=== PATIENT | female | born 1965 | race Caucasian/White ===

== ENCOUNTER 2018-05-21 17:39 | Inpatient (IN) | payer MEDICAID ==
[~2018-05-21] VITALS: Ht 175.3 cm; Wt 75.0 kg
[2018-05-21] MEDS ORDERED: normal saline 1000ML IV soln IVB ONE (17:50)
[2018-05-21] MEDS ORDERED: methylPREDNISolone sod succ 125mg/2ml vial IV ONE (17:50)
[2018-05-21] MEDS ORDERED: albuterol 2.5 MG/3 ML nebule CONTNEB PRN (17:50)
[2018-05-21 18:18] LABS: BASOPHILS # (AUTO) 0.1 X10'3 (0-0.2); BASOPHILS % (AUTO) 0.4 % (0-1); EOSINOPHILS # (AUTO) 0.6 X10'3 (0-0.9); EOSINOPHILS % (AUTO) 3.7 % (0-6); HEMATOCRIT 43.2 % (35.0-45.0); HEMOGLOBIN 14.5 g/dl (12.0-16.0); LYMPHOCYTES # (AUTO) 1.8 X10'3 (1.1-4.8); LYMPHOCYTES % (AUTO) 11.4 % (21-51); MEAN CORPUSCULAR HEMOGLOBIN 28.3 PG (27.0-31.0); MEAN CORPUSCULAR HGB CONC 33.5 % (33.0-36.5); MEAN CORPUSCULAR VOLUME 84.6 FL (78-98); MEAN PLATELET VOLUME 7.3 FL (7.4-10.4); MONOCYTES # (AUTO) 0.7 X10'3 (0-0.9); MONOCYTES % (AUTO) 4.6 % (2-12); NEUTROPHILS # (AUTO) 12.4 X10'3 (1.8-7.7); NEUTROPHILS % (AUTO) 79.9 % (42-75); PLATELET COUNT 344 X10'3 (140-440); RED BLOOD COUNT 5.11 X10'6 (4.20-5.60); RED CELL DISTRIBUTION WIDTH 13.3 % (11.5-14.5); WHITE BLOOD COUNT 15.6 X10'3 (4.5-11.0)
[2018-05-21 18:41] LABS: ALANINE AMINOTRANSFERASE 14 U/L (12-78); ALBUMIN 3.4 G/DL (3.4-5.0); ALBUMIN/GLOBULIN RATIO 0.7 (1.1-1.5); ALKALINE PHOSPHATASE 100 IU/L (46-116); ANION GAP 11 (8-16); ASPARTATE AMINO TRANSFERASE 15 U/L (10-37); BILIRUBIN,TOTAL 0.8 MG/DL (0.1-1.0); BLOOD UREA NITROGEN 16 MG/DL (7-18); BUN/CREATININE RATIO 28.6 (6.6-38.0); CALCIUM 9.6 MG/DL (8.5-10.1); CHLORIDE 100 MMOL/L (99-107); CREATININE 0.56 MG/DL (0.40-0.90); GLUCOSE 101 MG/DL (70-104); POTASSIUM 4.1 MMOL/L (3.5-5.1); SODIUM 139 MMOL/L (135-145); TOTAL CARBON DIOXIDE 28.2 MMOL/L (24-32); eGFR > 90 ML/MIN
[2018-05-21 18:41] LABS: ABG BASE EXCESS 2.7 mmol/L (-2.0-3.0); ABG HCO3 26.4 mmol/L (22.0-26.0); ABG OXYGEN SATURATION 88.3 % (95-98); ABG PCO2 (T) 38.4 mmHg (32.0-45.0); ABG PH (T) 7.457 (7.350-7.450); FCOHb 0.7 % (0.5-1.5); FLOW 5 L/min; FMetHb 0.3 % (0.3-1.12); FO2Hb 87.4 % (94-100); PATIENT TEMPERATURE 37.4; RESPIRATORY RATE (OBSERVED) 26 b/min; TOTAL HEMOGLOBIN 15.3 G/dl (12.0-16.0)
[2018-05-21 18:43] LABS: PARTIAL THROMBOPLASTIN TIME 31 SECONDS (22-32); PROTHROMBIN TIME 10.5 SECONDS (9.0-12.0)
[2018-05-21 18:44] LABS: D-DIMER 0.63 MG/L FEU (0-0.50)
[2018-05-21] MEDS ORDERED: NO HOME MEDS (19:24)
[2018-05-21] MEDS ORDERED: iohexol 350MG/ML 100ml bottle IV ONE (19:31)
[2018-05-21] MEDS: normal saline 1000ml 1,000 ML IV SCH (19:51)
[2018-05-21] MEDS ORDERED: ondansetron/PF 4mg/2ml inj IV PRN (19:55)
[2018-05-21] MEDS ORDERED: magnesium hydroxide 30ml (MOM) UD suspension PO PRN (19:55)
[2018-05-21] MEDS ORDERED: diphenhydrAMINE 50 mg/ml inj IV PRN (19:55)
[2018-05-21] MEDS ORDERED: HYDROcodone/acetaminophen 5mg/325mg tablet PO PRN (19:55)
[2018-05-21] MEDS ORDERED: mag hydrox/Alum hydrox/simeth 30ml oral suspension PO PRN (19:55)
[2018-05-21] MEDS ORDERED: acetaminophen 325mg tablet PO PRN (19:55)
[2018-05-21] MEDS ORDERED: diphenhydrAMINE 25mg capsule PO PRN (19:55)
[2018-05-21] MEDS ORDERED: morphine 2 MG/ML inj. syringe IV PRN ×2 (19:55)
[2018-05-21] MEDS ORDERED: HYDROcodone/acetaminophen 10/325mg tab PO PRN (19:55)
[2018-05-21] MEDS ORDERED: metoclopramide 5 mg/ml inj IV PRN (19:55)
[2018-05-21] MEDS ORDERED: bisacodyl 10mg suppository rectal RC PRN (19:55)
[2018-05-21] MEDS ORDERED: HYDROmorphone 1 mg/ml syringe IV PRN ×2 (19:55)
[2018-05-21] MEDS ORDERED: normal saline 1000ml 1,000 ML IVB ONE (19:58)
[2018-05-21] MEDS: docusate sod 100mg capsule PO SCH (20:12)
[2018-05-21] MEDS: CefTRIAXone/D5W-Rocephin 1gm 50 ML IV SCH (20:13)
[2018-05-21] MEDS: heparin, porcine 5000 units/ml vial SQ SCH (20:13)
[2018-05-21] MEDS: methylPREDNISolone sod succ 125mg/2ml vial IV SCH (20:13)
[2018-05-21 20:16] LABS: HEMOGLOBIN A1C 5.4 % (4.5-6.2)
[2018-05-21 20:27] LABS: MAGNESIUM 1.9 MG/DL (1.5-2.4)
[2018-05-21] MEDS ORDERED: temazepam 15mg capsule PO PRN (21:00)
[2018-05-22] VITALS (14 sets, daily range): BP systolic 100–149; BP diastolic 50–82
[2018-05-22] MEDS: normal saline 1000ml 1,000 ML IV SCH (00:59)
[2018-05-22 06:51] LABS: BASOPHILS % (AUTO) 0.1 % (0-1); EOSINOPHILS # (AUTO) 0.1 X10'3 (0-0.9); EOSINOPHILS % (AUTO) 0.8 % (0-6); HEMATOCRIT 40.5 % (35.0-45.0); HEMOGLOBIN 13.4 g/dl (12.0-16.0); LYMPHOCYTES # (AUTO) 0.8 X10'3 (1.1-4.8); LYMPHOCYTES % (AUTO) 5.6 % (21-51); MEAN CORPUSCULAR HEMOGLOBIN 28.3 PG (27.0-31.0); MEAN CORPUSCULAR HGB CONC 32.9 % (33.0-36.5); MEAN CORPUSCULAR VOLUME 85.9 FL (78-98); MEAN PLATELET VOLUME 7.6 FL (7.4-10.4); MONOCYTES # (AUTO) 0.3 X10'3 (0-0.9); MONOCYTES % (AUTO) 1.9 % (2-12); NEUTROPHILS # (AUTO) 13.6 X10'3 (1.8-7.7); NEUTROPHILS % (AUTO) 91.6 % (42-75); PLATELET COUNT 292 X10'3 (140-440); RED BLOOD COUNT 4.72 X10'6 (4.20-5.60); RED CELL DISTRIBUTION WIDTH 13.3 % (11.5-14.5); WHITE BLOOD COUNT 14.9 X10'3 (4.5-11.0)
[2018-05-22 07:08] LABS: ALBUMIN 2.9 G/DL (3.4-5.0); ANION GAP 10 (8-16); BLOOD UREA NITROGEN 23 MG/DL (7-18); BUN/CREATININE RATIO 36.5 (6.6-38.0); CALCIUM 9.6 MG/DL (8.5-10.1); CHLORIDE 104 MMOL/L (99-107); CHOLESTEROL 128 MG/DL (0-200); CREATININE 0.63 MG/DL (0.40-0.90); GLUCOSE 150 MG/DL (70-104); HDL CHOLESTEROL 43 MG/DL (35-60); LDL CHOLESTEROL 75 MG/DL (50-100); POTASSIUM 4.2 MMOL/L (3.5-5.1); SODIUM 139 MMOL/L (135-145); TOTAL CARBON DIOXIDE 25.3 MMOL/L (24-32); TRIGLYCERIDES 32 MG/DL (20-135); eGFR > 90 ML/MIN
[2018-05-22] MEDS: CefTRIAXone/D5W-Rocephin 1gm 50 ML IV SCH ×2 (08:27→20:34)
[2018-05-22] MEDS: heparin, porcine 5000 units/ml vial SQ SCH ×2 (08:27→20:33)
[2018-05-22] MEDS: docusate sod 100mg capsule PO SCH ×2 (08:27→20:34)
[2018-05-22] MEDS: methylPREDNISolone sod succ 125mg/2ml vial IV SCH ×2 (08:27→20:33)
[2018-05-22] MEDS: pantoprazole 40mg Tablet.DR PO SCH (08:27)
[2018-05-22] MEDS: azithromycin/NS 500mg/250ml 250 ML IV SCH (08:28)
[2018-05-22] MEDS: nicotine 21mg patch - 24 hr TD SCH (08:31)
[2018-05-22] MEDS ORDERED: vancomycin/NS 1 GM ADD-VANTAGE 250 ML IV SCH (11:00)
[2018-05-22] MEDS: vancomycin/NS 1 GM ADD-VANTAGE 250 ML IV SCH ×2 (12:32→23:33)
[2018-05-22] MEDS: albuterol 2.5 MG/3 ML nebule NEB PRN (14:33)
[2018-05-22] MEDS: lactobacillus rhamnosus 10,000 MMU CELLS/CAPSULE PO SCH (20:32)
[2018-05-23] VITALS (7 sets, daily range): BP systolic 106–121; BP diastolic 57–79
[2018-05-23 06:33] LABS: BASOPHILS % (AUTO) 0.1 % (0-1); EOSINOPHILS % (AUTO) 0 % (0-6); HEMATOCRIT 39.2 % (35.0-45.0); HEMOGLOBIN 12.9 g/dl (12.0-16.0); LYMPHOCYTES % (AUTO) 4.5 % (21-51); MEAN CORPUSCULAR HEMOGLOBIN 28.4 PG (27.0-31.0); MEAN CORPUSCULAR HGB CONC 32.8 % (33.0-36.5); MEAN CORPUSCULAR VOLUME 86.6 FL (78-98); MEAN PLATELET VOLUME 7.9 FL (7.4-10.4); MONOCYTES # (AUTO) 0.5 X10'3 (0-0.9); MONOCYTES % (AUTO) 2.2 % (2-12); NEUTROPHILS # (AUTO) 19.8 X10'3 (1.8-7.7); NEUTROPHILS % (AUTO) 93.2 % (42-75); PLATELET COUNT 309 X10'3 (140-440); RED BLOOD COUNT 4.53 X10'6 (4.20-5.60); RED CELL DISTRIBUTION WIDTH 13.6 % (11.5-14.5); WHITE BLOOD COUNT 21.2 X10'3 (4.5-11.0)
[2018-05-23 06:38] LABS: ALBUMIN 2.7 G/DL (3.4-5.0); ANION GAP 8 (8-16); BLOOD UREA NITROGEN 21 MG/DL (7-18); BUN/CREATININE RATIO 31.8 (6.6-38.0); CALCIUM 9.2 MG/DL (8.5-10.1); CHLORIDE 103 MMOL/L (99-107); CREATININE 0.66 MG/DL (0.40-0.90); GLUCOSE 128 MG/DL (70-104); POTASSIUM 4.2 MMOL/L (3.5-5.1); SODIUM 140 MMOL/L (135-145); TOTAL CARBON DIOXIDE 29.1 MMOL/L (24-32); eGFR > 90 ML/MIN
[2018-05-23] MEDS: albuterol 2.5 MG/3 ML nebule NEB PRN (07:52)
[2018-05-23] MEDS: heparin, porcine 5000 units/ml vial SQ SCH ×2 (08:28→19:55)
[2018-05-23] MEDS: methylPREDNISolone sod succ 125mg/2ml vial IV SCH ×2 (08:28→19:54)
[2018-05-23] MEDS: docusate sod 100mg capsule PO SCH ×2 (08:28→19:55)
[2018-05-23] MEDS: azithromycin/NS 500mg/250ml 250 ML IV SCH (08:29)
[2018-05-23] MEDS: CefTRIAXone/D5W-Rocephin 1gm 50 ML IV SCH ×2 (08:29→19:47)
[2018-05-23] MEDS: lactobacillus rhamnosus 10,000 MMU CELLS/CAPSULE PO SCH ×2 (08:29→19:55)
[2018-05-23] MEDS: pantoprazole 40mg Tablet.DR PO SCH (08:29)
[2018-05-23] MEDS: nicotine 21mg patch - 24 hr TD SCH (08:32)
[2018-05-23] MEDS: vancomycin/NS 1 GM ADD-VANTAGE 250 ML IV SCH (11:17)
[2018-05-23] MEDS ORDERED: VANCOMYCIN LEVEL IV ONE (22:30)
[2018-05-23] MEDS: benzonatate 100mg capsule PO PRN (23:52)
[2018-05-24] MEDS: vancomycin/NS 1 GM ADD-VANTAGE 250 ML IV SCH (00:01)
[2018-05-24 00:29] LABS: ALBUMIN 2.8 G/DL (3.4-5.0); ANION GAP 7 (8-16); BLOOD UREA NITROGEN 22 MG/DL (7-18); BUN/CREATININE RATIO 27.8 (6.6-38.0); CALCIUM 9.3 MG/DL (8.5-10.1); CHLORIDE 103 MMOL/L (99-107); CREATININE 0.79 MG/DL (0.40-0.90); GLUCOSE 154 MG/DL (70-104); POTASSIUM 4.1 MMOL/L (3.5-5.1); SODIUM 138 MMOL/L (135-145); TOTAL CARBON DIOXIDE 28.2 MMOL/L (24-32); VANCOMYCIN,TROUGH 4.6 UG/ML (6.0-14.0); eGFR 77 ML/MIN
[2018-05-24 03:00] VITALS: BP 117/66
[2018-05-24 05:13] LABS: BASOPHILS % (AUTO) 0.1 % (0-1); EOSINOPHILS % (AUTO) 0 % (0-6); HEMATOCRIT 37.1 % (35.0-45.0); HEMOGLOBIN 12.2 g/dl (12.0-16.0); LYMPHOCYTES # (AUTO) 1.1 X10'3 (1.1-4.8); LYMPHOCYTES % (AUTO) 7.4 % (21-51); MEAN CORPUSCULAR HEMOGLOBIN 28.4 PG (27.0-31.0); MEAN CORPUSCULAR HGB CONC 32.9 % (33.0-36.5); MEAN CORPUSCULAR VOLUME 86.4 FL (78-98); MEAN PLATELET VOLUME 7.6 FL (7.4-10.4); MONOCYTES # (AUTO) 0.5 X10'3 (0-0.9); MONOCYTES % (AUTO) 3.4 % (2-12); NEUTROPHILS # (AUTO) 13.6 X10'3 (1.8-7.7); NEUTROPHILS % (AUTO) 89.1 % (42-75); PLATELET COUNT 301 X10'3 (140-440); RED BLOOD COUNT 4.29 X10'6 (4.20-5.60); WHITE BLOOD COUNT 15.3 X10'3 (4.5-11.0)
[2018-05-24 07:00] VITALS: BP 116/80
[2018-05-24] MEDS: heparin, porcine 5000 units/ml vial SQ SCH (07:52)
[2018-05-24] MEDS: methylPREDNISolone sod succ 125mg/2ml vial IV SCH (07:53)
[2018-05-24] MEDS: pantoprazole 40mg Tablet.DR PO SCH (07:53)
[2018-05-24] MEDS: lactobacillus rhamnosus 10,000 MMU CELLS/CAPSULE PO SCH (07:53)
[2018-05-24] MEDS: docusate sod 100mg capsule PO SCH (07:53)
[2018-05-24] MEDS: CefTRIAXone/D5W-Rocephin 1gm 50 ML IV SCH (07:54)
[2018-05-24] MEDS: nicotine 21mg patch - 24 hr TD SCH (08:00)
[2018-05-24] MEDS ORDERED: azithromycin 250mg tablet PO SCH (08:00)
[2018-05-24] MEDS: benzonatate 100mg capsule PO PRN (08:07)
[2018-05-24] MEDS ORDERED: LEVO750T21 PO (08:18)
[2018-05-24] MEDS ORDERED: ALBU8.5H8 INH (08:18)
[2018-05-24] MEDS ORDERED: GUAI600T45 PO (08:18)
[2018-05-26] MEDS ORDERED: VANCOMYCIN LEVEL IV ONE (10:30)
== END 2018-05-24 14:50 | disposition home or self-care (01) | DRG 720 ==
LOC: ER 17:40 → ED HOLD 19:51 → EDBEDREQ 05-22 03:08 → PCU 3S 05-22 04:12
PROVIDERS: ADMIT Family Medicine; ATTEND Internal Medicine
PROC: 5A09357 Assistance with Respiratory Ventilation, Less than 24 Consecutive Hours, Continuous Positive Airway Pressure (ICD-10-PCS; principal; 2018-05-21)
PROC: B32T1ZZ Computerized Tomography (CT Scan) of Left Pulmonary Artery using Low Osmolar Contrast (ICD-10-PCS; 2018-05-21)
PROC: B3201ZZ Computerized Tomography (CT Scan) of Thoracic Aorta using Low Osmolar Contrast (ICD-10-PCS; 2018-05-21)
PROC: B32S1ZZ Computerized Tomography (CT Scan) of Right Pulmonary Artery using Low Osmolar Contrast (ICD-10-PCS; 2018-05-21)
DX: A41.9 Sepsis, unspecified organism (principal); J96.01 Acute respiratory failure with hypoxia; J18.9 Pneumonia, unspecified organism; J44.1 Chronic obstructive pulmonary disease with (acute) exacerbation; F15.10 Other stimulant abuse, uncomplicated; E86.0 Dehydration; J44.0 Chronic obstructive pulmonary disease with (acute) lower respiratory infection; F17.200 Nicotine dependence, unspecified, uncomplicated; Z88.2 Allergy status to sulfonamides; Z79.899 Other long term (current) drug therapy
CPT/HCPCS: 36415; 36600; 71045; 71275; 80048; 80053; 80061; 80202; 82803; 83036; 83605; 83735; 83880; 84100; 84443; 84484; 85018; 85025; 85379; 85610; 85730; 87040; 87070; 93005; 93306; 94640; 94660; 94760; 96361; 96374; 99285; G0378; J0456; J0696; J1644; J2930; J3370; J7030; Q9967

== ENCOUNTER 2018-06-08 00:11 | Inpatient (IN) | payer MEDICAID ==
[2018-06-08] VITALS (8 sets, daily range): BP systolic 90–118; BP diastolic 45–72
[~2018-06-08] VITALS: Ht 167.6 cm; Wt 80.0 kg
[~2018-06-08 00:11] MED LIST: ALBU8.5H8 INH; GUAI600T45 PO; LEVO750T21 PO
[2018-06-08] MEDS ORDERED: terbutaline 1 mg/ml inj SQ STA (00:24)
[2018-06-08] MEDS ORDERED: normal saline 1000ml 1,000 ML IV ONE (00:26)
[2018-06-08] MEDS ORDERED: methylPREDNISolone sod succ 125mg/2ml vial IV ONE (00:30)
[2018-06-08] MEDS ORDERED: albuterol 2.5 MG/3 ML nebule CONTNEB PRN ×2 (00:30→00:55)
[2018-06-08] MEDS ORDERED: albuterol 2.5 MG/3 ML nebule NEB ONE (00:30)
[2018-06-08] MEDS ORDERED: normal saline 1000ML IV soln IVB ONE (00:30)
[2018-06-08 00:54] LABS: BASOPHILS # (AUTO) 0.2 X10'3 (0-0.2); BASOPHILS % (AUTO) 1.1 % (0-1); EOSINOPHILS # (AUTO) 1.6 X10'3 (0-0.9); EOSINOPHILS % (AUTO) 11.2 % (0-6); HEMOGLOBIN 15.3 g/dl (12.0-16.0); LYMPHOCYTES # (AUTO) 4.3 X10'3 (1.1-4.8); MEAN CORPUSCULAR HEMOGLOBIN 27.8 PG (27.0-31.0); MEAN CORPUSCULAR HGB CONC 32.5 % (33.0-36.5); MEAN CORPUSCULAR VOLUME 85.4 FL (78-98); MEAN PLATELET VOLUME 8.5 FL (7.4-10.4); MONOCYTES # (AUTO) 0.9 X10'3 (0-0.9); MONOCYTES % (AUTO) 6.6 % (2-12); NEUTROPHILS # (AUTO) 6.9 X10'3 (1.8-7.7); NEUTROPHILS % (AUTO) 50.1 % (42-75); PLATELET COUNT 352 X10'3 (140-440); RED BLOOD COUNT 5.51 X10'6 (4.20-5.60); RED CELL DISTRIBUTION WIDTH 12.6 % (11.5-14.5); WHITE BLOOD COUNT 13.9 X10'3 (4.5-11.0)
[2018-06-08 00:55] LABS: PARTIAL THROMBOPLASTIN TIME 27 SECONDS (22-32)
[2018-06-08 00:56] LABS: ALANINE AMINOTRANSFERASE 19 U/L (12-78); ALBUMIN 3.5 G/DL (3.4-5.0); ALBUMIN/GLOBULIN RATIO 0.9 (1.1-1.5); ALKALINE PHOSPHATASE 111 IU/L (46-116); ANION GAP 10 (8-16); ASPARTATE AMINO TRANSFERASE 18 U/L (10-37); BILIRUBIN,TOTAL 0.3 MG/DL (0.1-1.0); BLOOD UREA NITROGEN 13 MG/DL (7-18); BUN/CREATININE RATIO 12.5 (6.6-38.0); CALCIUM 8.7 MG/DL (8.5-10.1); CHLORIDE 101 MMOL/L (99-107); CREATININE 1.04 MG/DL (0.40-0.90); GLUCOSE 185 MG/DL (70-104); MAGNESIUM 1.9 MG/DL (1.5-2.4); SODIUM 137 MMOL/L (135-145); TOTAL CARBON DIOXIDE 25.7 MMOL/L (24-32); TOTAL PROTEIN 7.6 G/DL (6.4-8.2); eGFR 56 ML/MIN
[2018-06-08 01:01] LABS: POTASSIUM 4.1 MMOL/L (3.5-5.1)
[2018-06-08] MEDS ORDERED: aspirin 81mg tab.chew PO ONE (01:15)
[2018-06-08 01:16] LABS: ABG BASE EXCESS -5.8 mmol/L (-2.0-3.0); ABG HCO3 19.9 mmol/L (22.0-26.0); ABG OXYGEN SATURATION 92.6 % (95-98); ABG PCO2 (T) 38.9 mmHg (32.0-45.0); ABG PH (T) 7.324 (7.350-7.450); ABG PO2 (T) 65.1 mmHg (83-108); FCOHb 0.7 % (0.5-1.5); FMetHb 0.1 % (0.3-1.12); FO2Hb 91.9 % (94-100); MINUTE VOLUME 21 L/min; PATIENT TEMPERATURE 36.4; RESPIRATORY RATE 14 b/min; RESPIRATORY RATE (OBSERVED) 29 b/min; TOTAL HEMOGLOBIN 14.2 G/dl (12.0-16.0)
[2018-06-08] MEDS ORDERED: ondansetron/PF 4mg/2ml inj IV PRN (02:15)
[2018-06-08] MEDS ORDERED: ipratropium/albuterol 3ml nebule NEB PRN (02:15)
[2018-06-08] MEDS ORDERED: acetaminophen 325mg tablet PO PRN ×2 (02:15)
[2018-06-08] MEDS ORDERED: magnesium hydroxide 30ml (MOM) UD suspension PO PRN (02:15)
[2018-06-08] MEDS ORDERED: mag hydrox/Alum hydrox/simeth 30ml oral suspension PO PRN (02:15)
[2018-06-08] MEDS ORDERED: enoxaparin 100mg/ml syringe SUBCUT ONE (05:00)
[2018-06-08] MEDS: pantoprazole 40mg Tablet.DR PO SCH (07:35)
[2018-06-08] MEDS ORDERED: enoxaparin 40mg/0.4ml syringe SUBCUT SCH (08:00)
[2018-06-08] MEDS: methylPREDNISolone sod succ/PF 40mg inj. IV SCH ×3 (08:28→20:34)
[2018-06-08] MEDS: tirofiban 5mg in NS 100mL 100 ML IV SCH ×2 (13:46→17:22)
[2018-06-08] MEDS: ipratropium/albuterol 3ml nebule NEB SCH ×3 (15:11→23:53)
[2018-06-08 15:36] LABS: URINE AMPHETAMINE SCREEN POSITIVE (Neg); URINE BARBITUATE SCREEN NEGATIVE (Neg); URINE BENZODIAZEPINES SCREEN NEGATIVE (Neg); URINE CANNABINOID SCREEN NEGATIVE (Neg); URINE COCAINE SCREEN NEGATIVE (Neg); URINE METHADONE SCREEN NEGATIVE (Neg); URINE OPIATE SCREEN NEGATIVE (Neg); URINE PHENCYCLIDINE SCREEN NEGATIVE (Neg)
[2018-06-08] MEDS ORDERED: fentaNYL/PF 50MCG/1 ML 2ML syringe ONE (17:32)
[2018-06-08] MEDS ORDERED: midazolam 2 mg/2 ml injection ONE (17:32)
[2018-06-08] MEDS ORDERED: LIDOcaine 1% 30ml preserv. free vial ONE (17:32)
[2018-06-08] MEDS ORDERED: iohexol 350MG/ML 100ml bottle IV ONE (17:33)
[2018-06-08] MEDS ORDERED: iohexol 350 MG/ML 50ML vial IV ONE (17:33)
[2018-06-08] MEDS ORDERED: proCHLORperazine 10 MG/2 ml inj IV PRN (19:55)
[2018-06-08] MEDS ORDERED: OXAZEpam 15mg capsule PO PRN (19:55)
[2018-06-09] VITALS: BP 105/68
[2018-06-09 02:00] VITALS: BP 100/58
[2018-06-09] MEDS: ipratropium/albuterol 3ml nebule NEB SCH ×5 (03:30→19:35)
[2018-06-09 06:00] VITALS: BP_SYST 111; BP_SYST 156; BP_DIAS 63; BP_DIAS 65
[2018-06-09 06:47] LABS: BASOPHILS % (AUTO) 0 % (0-1); EOSINOPHILS # (AUTO) 0.3 X10'3 (0-0.9); EOSINOPHILS % (AUTO) 1.4 % (0-6); HEMATOCRIT 38.5 % (35.0-45.0); HEMOGLOBIN 12.7 g/dl (12.0-16.0); LYMPHOCYTES % (AUTO) 5.1 % (21-51); MEAN CORPUSCULAR HEMOGLOBIN 28.1 PG (27.0-31.0); MEAN CORPUSCULAR VOLUME 85.2 FL (78-98); MEAN PLATELET VOLUME 8.4 FL (7.4-10.4); MONOCYTES # (AUTO) 0.6 X10'3 (0-0.9); MONOCYTES % (AUTO) 3.1 % (2-12); NEUTROPHILS # (AUTO) 17.9 X10'3 (1.8-7.7); NEUTROPHILS % (AUTO) 90.4 % (42-75); PLATELET COUNT 235 X10'3 (140-440); RED BLOOD COUNT 4.52 X10'6 (4.20-5.60); RED CELL DISTRIBUTION WIDTH 13.3 % (11.5-14.5); WHITE BLOOD COUNT 19.8 X10'3 (4.5-11.0)
[2018-06-09 06:58] LABS: ALBUMIN 2.7 G/DL (3.4-5.0); ANION GAP 9 (8-16); BLOOD UREA NITROGEN 19 MG/DL (7-18); BUN/CREATININE RATIO 26.4 (6.6-38.0); CALCIUM 9.3 MG/DL (8.5-10.1); CHLORIDE 106 MMOL/L (99-107); CHOL/HDL RATIO 3.6 (0.00-4.99); CHOLESTEROL 167 MG/DL (0-200); CREATININE 0.72 MG/DL (0.40-0.90); GLUCOSE 126 MG/DL (70-104); HDL CHOLESTEROL 46 MG/DL (35-60); LDL CHOLESTEROL 110 MG/DL (50-100); POTASSIUM 4.2 MMOL/L (3.5-5.1); SODIUM 142 MMOL/L (135-145); TOTAL CARBON DIOXIDE 27.4 MMOL/L (24-32); TRIGLYCERIDES 70 MG/DL (20-135); eGFR 85 ML/MIN
[2018-06-09] MEDS: pantoprazole 40mg Tablet.DR PO SCH (08:39)
[2018-06-09] MEDS: methylPREDNISolone sod succ/PF 40mg inj. IV SCH (08:40)
[2018-06-09] MEDS ORDERED: levoFLOXACIN-Levaquin 750MG/D5 150 ML IV SCH (09:42)
[2018-06-09 11:00] VITALS: BP 94/52
[2018-06-09 11:30] VITALS: BP 118/68
[2018-06-09] MEDS ORDERED: PRED10TA23 PO (12:32)
[2018-06-09] MEDS ORDERED: PANT40TA4 PO (12:32)
[2018-06-09] MEDS ORDERED: LEVO500T2 PO (12:32)
[2018-06-09 15:00] VITALS: BP 99/57
[2018-06-09] MEDS ORDERED: ALBU8.5H8 INH (17:58)
[2018-06-09] MEDS ORDERED: lactobacillus rhamnosus 10,000 MMU CELLS/CAPSULE PO SCH (20:00)
== END 2018-06-09 20:15 | disposition home or self-care (01) | DRG 140 ==
LOC: ER 00:12 → ED HOLD 02:11 → PCU 3S 06:57 → CMPBEDREQ 06-09 19:46
PROVIDERS: ADMIT Internal Medicine; ATTEND Internal Medicine
PROC: 4A023N7 Measurement of Cardiac Sampling and Pressure, Left Heart, Percutaneous Approach (ICD-10-PCS; principal; 2018-06-08)
PROC: B2111ZZ Fluoroscopy of Multiple Coronary Arteries using Low Osmolar Contrast (ICD-10-PCS; 2018-06-08)
PROC: B2151ZZ Fluoroscopy of Left Heart using Low Osmolar Contrast (ICD-10-PCS; 2018-06-08)
PROC: 5A09357 Assistance with Respiratory Ventilation, Less than 24 Consecutive Hours, Continuous Positive Airway Pressure (ICD-10-PCS; 2018-06-08)
DX: J44.1 Chronic obstructive pulmonary disease with (acute) exacerbation (principal); I21.A1 Myocardial infarction type 2; J96.01 Acute respiratory failure with hypoxia; F15.10 Other stimulant abuse, uncomplicated; F17.200 Nicotine dependence, unspecified, uncomplicated; R73.9 Hyperglycemia, unspecified; D72.829 Elevated white blood cell count, unspecified; Z88.2 Allergy status to sulfonamides; Z71.6 Tobacco abuse counseling
CPT/HCPCS: 36415; 36600; 71045; 80048; 80053; 80061; 80305; 82803; 83735; 83880; 84145; 84484; 85018; 85025; 85610; 85730; 87040; 87070; 93005; 93458; 94640; 94644; 94660; 94760; 96361; 96372; 96374; 97116; 97162; 97530; 99152; 99153; 99291; A4620; A6257; C1760; C1769; G0378; J1644; J1650; J1956; J2250; J2920; J2930; J3010; J3105; J3246; J3490; Q9967

== ENCOUNTER 2018-07-12 20:08 | Inpatient (IN) | payer MEDICAID ==
[~2018-07-12] VITALS: Ht 172.7 cm; Wt 77.3 kg
[~2018-07-12 20:08] MED LIST changes: -GUAI600T45 PO; -LEVO750T21 PO; +PANT40TA4 PO
[2018-07-12] MEDS ORDERED: ipratropium 0.5 MG/2.5ML nebule IH ONE (20:35)
[2018-07-12] MEDS ORDERED: albuterol 2.5 MG/3 ML nebule CONTNEB PRN (20:35)
[2018-07-12] MEDS ORDERED: methylPREDNISolone sod succ 125mg/2ml vial IV ONE (20:35)
[2018-07-12] MEDS ORDERED: LORazepam 2 mg/ml vial IV ONE (20:45)
[2018-07-12] MEDS ORDERED: temazepam 15mg capsule PO PRN (21:00)
[2018-07-12 21:01] LABS: ABG BASE EXCESS -0.6 mmol/L (-2.0-3.0); ABG OXYGEN SATURATION 98.6 % (95-98); ABG PCO2 (T) 50.4 mmHg (32.0-45.0); ABG PO2 (T) 151.6 mmHg (83-108); FMetHb 0.3 % (0.3-1.12); FO2Hb 97.3 % (94-100); MINUTE VOLUME 20 L/min; RESPIRATORY RATE (OBSERVED) 28 b/min; TOTAL HEMOGLOBIN 14.5 G/dl (12.0-16.0)
[2018-07-12 21:19] LABS: BASOPHILS % (AUTO) 0.3 % (0-1); EOSINOPHILS # (AUTO) 0.6 X10'3 (0-0.9); EOSINOPHILS % (AUTO) 4.6 % (0-6); HEMATOCRIT 43.1 % (35.0-45.0); HEMOGLOBIN 13.8 g/dl (12.0-16.0); LYMPHOCYTES # (AUTO) 0.9 X10'3 (1.1-4.8); LYMPHOCYTES % (AUTO) 7.1 % (21-51); MEAN CORPUSCULAR HEMOGLOBIN 27.3 PG (27.0-31.0); MEAN CORPUSCULAR VOLUME 85.2 FL (78-98); MEAN PLATELET VOLUME 8.6 FL (7.4-10.4); MONOCYTES # (AUTO) 0.8 X10'3 (0-0.9); MONOCYTES % (AUTO) 6.1 % (2-12); NEUTROPHILS # (AUTO) 10.1 X10'3 (1.8-7.7); NEUTROPHILS % (AUTO) 81.9 % (42-75); PLATELET COUNT 245 X10'3 (140-440); RED BLOOD COUNT 5.06 X10'6 (4.20-5.60); RED CELL DISTRIBUTION WIDTH 13.1 % (11.5-14.5); WHITE BLOOD COUNT 12.4 X10'3 (4.5-11.0)
[2018-07-12 21:28] LABS: PROTHROMBIN TIME 10.1 SECONDS (9.0-12.0)
[2018-07-12 21:31] LABS: ALANINE AMINOTRANSFERASE 16 U/L (12-78); ALBUMIN 3.5 G/DL (3.4-5.0); ALBUMIN/GLOBULIN RATIO 0.9 (1.1-1.5); ALKALINE PHOSPHATASE 82 IU/L (46-116); ANION GAP 9 (8-16); ASPARTATE AMINO TRANSFERASE 19 U/L (10-37); BLOOD UREA NITROGEN 13 MG/DL (7-18); BUN/CREATININE RATIO 22.8 (6.6-38.0); CALCIUM 8.6 MG/DL (8.5-10.1); CHLORIDE 101 MMOL/L (99-107); CREATININE 0.57 MG/DL (0.40-0.90); GLUCOSE 106 MG/DL (70-104); MAGNESIUM 1.7 MG/DL (1.5-2.4); SODIUM 137 MMOL/L (135-145); TOTAL CARBON DIOXIDE 26.8 MMOL/L (24-32); TOTAL PROTEIN 7.3 G/DL (6.4-8.2); eGFR > 90 ML/MIN
[2018-07-12 22:20] LABS: ABG BASE EXCESS -0.7 mmol/L (-2.0-3.0); ABG HCO3 24.6 mmol/L (22.0-26.0); ABG OXYGEN SATURATION 93.1 % (95-98); ABG PCO2 (T) 44.5 mmHg (32.0-45.0); ABG PH (T) 7.363 (7.350-7.450); ABG PO2 (T) 72.6 mmHg (83-108); ALLEN'S TEST Positive; FCOHb 1.1 % (0.5-1.5); FMetHb 0.2 % (0.3-1.12); FO2Hb 91.9 % (94-100); PATIENT TEMPERATURE 37.8; RESPIRATORY RATE 16 b/min; RESPIRATORY RATE (OBSERVED) 28 b/min; TOTAL HEMOGLOBIN 14.4 G/dl (12.0-16.0)
[2018-07-12] MEDS ORDERED: ondansetron/PF 4mg/2ml inj IV PRN (23:00)
[2018-07-12] MEDS ORDERED: HYDROcodone/acetaminophen 10/325mg tab PO PRN (23:00)
[2018-07-12] MEDS ORDERED: diphenhydrAMINE 50 mg/ml inj IV PRN (23:00)
[2018-07-12] MEDS ORDERED: magnesium hydroxide 30ml (MOM) UD suspension PO PRN (23:00)
[2018-07-12] MEDS ORDERED: mag hydrox/Alum hydrox/simeth 30ml oral suspension PO PRN (23:00)
[2018-07-12] MEDS ORDERED: metoclopramide 5 mg/ml inj IV PRN (23:00)
[2018-07-12] MEDS ORDERED: diphenhydrAMINE 25mg capsule PO PRN (23:00)
[2018-07-12] MEDS ORDERED: acetaminophen 650mg rectal suppository RC PRN (23:00)
[2018-07-12] MEDS ORDERED: morphine 4 MG/ML inj SYRINge IV PRN (23:00)
[2018-07-12] MEDS ORDERED: bisacodyl 10mg suppository rectal RC PRN (23:00)
[2018-07-12] MEDS ORDERED: acetaminophen 325mg tablet PO PRN ×2 (23:00)
[2018-07-12] MEDS ORDERED: HYDROmorphone 1 mg/ml syringe IV PRN (23:00)
[2018-07-12] MEDS: normal saline 1000ml 1,000 ML IV SCH (23:17)
[2018-07-12 23:45] LABS: PHOSPHORUS 3.2 MG/DL (2.3-4.5)
[2018-07-12 23:46] LABS: HEMOGLOBIN A1C 5.7 % (4.5-6.2)
[2018-07-13] MEDS ORDERED: CefTRIAXone/D5W-Rocephin 1gm 50 ML IV ONE (00:05)
--- NOTE | 2018-07-13 00:08 | NUR ---
pt temp 101.5, no antibotics given. informed dr. villarreal, ordered rocephin now.
[2018-07-13] MEDS: azithromycin/NS 500mg/250ml 250 ML IV SCH (00:44)
--- NOTE | 2018-07-13 01:16 | NUR ---
PT SITTING UP IN CHAIR WHILE SABRA SWITCHED OUT FOR BED. PT TOLERATED WELL.
[2018-07-13] MEDS: ipratropium/albuterol 3ml nebule NEB PRN ×5 (02:14→19:31)
--- NOTE | 2018-07-13 06:51 | NUR ---
REPORT ATTEMPTED, TORSTEN CAMARENA TO RETURN CALL.
--- NOTE | 2018-07-13 07:15 | NUR ---
Patient in room PCU 3028. I have received report from Lilly RN and had the opportunity to ask questions and assume patient care.
[2018-07-13 07:35] VITALS: BP 114/66
--- NOTE | 2018-07-13 07:35 | NUR ---
Pt. arrived from the ER. Seems fatigued. Pt's vitals were taken and pt. placed on tele. Pt. does not have any complaints. No skin issues were noted.
[2018-07-13] MEDS: docusate sod 100mg capsule PO SCH ×2 (07:57→21:06)
[2018-07-13] MEDS: heparin, porcine 5000 units/ml vial SQ SCH ×2 (07:57→21:05)
[2018-07-13] MEDS ORDERED: azithromycin/NS 500mg/250ml 250 ML IV SCH (08:00)
[2018-07-13] MEDS ORDERED: methylPREDNISolone sod succ 125mg/2ml vial IV SCH (08:00)
[2018-07-13] MEDS: normal saline 1000ml 1,000 ML IV SCH ×2 (08:56→20:42)
[2018-07-13] MEDS: CefTRIAXone/D5W-Rocephin 1gm 50 ML IV SCH ×2 (09:36→21:06)
[2018-07-13 10:02] LABS: BASOPHILS % (AUTO) 0.1 % (0-1); EOSINOPHILS % (AUTO) 0 % (0-6); HEMATOCRIT 40.2 % (35.0-45.0); HEMOGLOBIN 13.3 g/dl (12.0-16.0); LYMPHOCYTES # (AUTO) 0.5 X10'3 (1.1-4.8); LYMPHOCYTES % (AUTO) 4.2 % (21-51); MEAN CORPUSCULAR HEMOGLOBIN 28.5 PG (27.0-31.0); MEAN CORPUSCULAR VOLUME 86.3 FL (78-98); MEAN PLATELET VOLUME 8.1 FL (7.4-10.4); MONOCYTES # (AUTO) 0.1 X10'3 (0-0.9); MONOCYTES % (AUTO) 1.2 % (2-12); NEUTROPHILS % (AUTO) 94.5 % (42-75); PLATELET COUNT 208 X10'3 (140-440); RED BLOOD COUNT 4.65 X10'6 (4.20-5.60); RED CELL DISTRIBUTION WIDTH 13.2 % (11.5-14.5); WHITE BLOOD COUNT 11.6 X10'3 (4.5-11.0)
[2018-07-13 10:16] LABS: ALANINE AMINOTRANSFERASE 14 U/L (12-78); ALBUMIN/GLOBULIN RATIO 0.8 (1.1-1.5); ALKALINE PHOSPHATASE 70 IU/L (46-116); ANION GAP 9 (8-16); ASPARTATE AMINO TRANSFERASE 17 U/L (10-37); BILIRUBIN,TOTAL 0.6 MG/DL (0.1-1.0); BLOOD UREA NITROGEN 16 MG/DL (7-18); CALCIUM 8.7 MG/DL (8.5-10.1); CHLORIDE 103 MMOL/L (99-107); CREATININE 0.47 MG/DL (0.40-0.90); GLUCOSE 124 MG/DL (70-104); POTASSIUM 4.2 MMOL/L (3.5-5.1); SODIUM 136 MMOL/L (135-145); TOTAL CARBON DIOXIDE 23.6 MMOL/L (24-32); TOTAL PROTEIN 6.7 G/DL (6.4-8.2); eGFR > 90 ML/MIN
[2018-07-13] MEDS ORDERED: NO HOME MEDS (10:31)
[2018-07-13 11:00] VITALS: BP 118/74
[2018-07-13 15:00] VITALS: BP 127/64
--- NOTE | 2018-07-13 18:15 | NUR ---
Patient in room PCU 3028. I have received report from TORSTEN Mclain and had the opportunity to ask questions and assume patient care.
--- NOTE | 2018-07-13 18:15 | NUR ---
Problems reprioritized. Patient report given, questions answered & plan of care reviewed with Susie SARMIENTO.
[2018-07-13 19:00] VITALS: BP 102/51
[2018-07-13] MEDS: methylPREDNISolone sod succ/PF 40mg inj. IV SCH (21:04)
[2018-07-13] MEDS: lactobacillus rhamnosus 10,000 MMU CELLS/CAPSULE PO SCH (21:06)
[2018-07-13 23:00] VITALS: BP 111/53
[2018-07-14] MEDS: azithromycin/NS 500mg/250ml 250 ML IV SCH ×2 (02:01→07:37)
[2018-07-14 03:00] VITALS: BP 103/72
[2018-07-14 06:08] LABS: BASOPHILS % (AUTO) 0.1 % (0-1); EOSINOPHILS % (AUTO) 0 % (0-6); HEMATOCRIT 33.4 % (35.0-45.0); HEMOGLOBIN 11.4 g/dl (12.0-16.0); LYMPHOCYTES # (AUTO) 0.8 X10'3 (1.1-4.8); LYMPHOCYTES % (AUTO) 4.6 % (21-51); MEAN CORPUSCULAR HEMOGLOBIN 29.1 PG (27.0-31.0); MEAN CORPUSCULAR HGB CONC 34.1 % (33.0-36.5); MEAN CORPUSCULAR VOLUME 85.3 FL (78-98); MEAN PLATELET VOLUME 9.2 FL (7.4-10.4); MONOCYTES # (AUTO) 0.6 X10'3 (0-0.9); MONOCYTES % (AUTO) 3.5 % (2-12); NEUTROPHILS # (AUTO) 16.7 X10'3 (1.8-7.7); NEUTROPHILS % (AUTO) 91.8 % (42-75); PLATELET COUNT 200 X10'3 (140-440); RED BLOOD COUNT 3.91 X10'6 (4.20-5.60); RED CELL DISTRIBUTION WIDTH 13.4 % (11.5-14.5); WHITE BLOOD COUNT 18.1 X10'3 (4.5-11.0)
[2018-07-14 06:28] LABS: ANION GAP 6 (8-16); BLOOD UREA NITROGEN 22 MG/DL (7-18); BUN/CREATININE RATIO 36.7 (6.6-38.0); CHLORIDE 107 MMOL/L (99-107); GLUCOSE 130 MG/DL (70-104); POTASSIUM 4.5 MMOL/L (3.5-5.1); SODIUM 140 MMOL/L (135-145); TOTAL CARBON DIOXIDE 26.7 MMOL/L (24-32)
[2018-07-14 06:29] LABS: ALANINE AMINOTRANSFERASE 14 U/L (12-78); ALBUMIN 2.6 G/DL (3.4-5.0); ALBUMIN/GLOBULIN RATIO 0.8 (1.1-1.5); ALKALINE PHOSPHATASE 58 IU/L (46-116); ASPARTATE AMINO TRANSFERASE 12 U/L (10-37); BILIRUBIN,TOTAL 0.3 MG/DL (0.1-1.0); CALCIUM 8.3 MG/DL (8.5-10.1); TOTAL PROTEIN 5.9 G/DL (6.4-8.2); eGFR > 90 ML/MIN
--- NOTE | 2018-07-14 06:35 | NUR ---
Problems reprioritized. Patient report given, questions answered & plan of care reviewed with Edda RN.
[2018-07-14 07:00] VITALS: BP 108/72
[2018-07-14] MEDS: docusate sod 100mg capsule PO SCH ×2 (07:35→20:07)
[2018-07-14] MEDS: lactobacillus rhamnosus 10,000 MMU CELLS/CAPSULE PO SCH ×2 (07:35→20:07)
[2018-07-14] MEDS: heparin, porcine 5000 units/ml vial SQ SCH ×2 (07:35→20:07)
[2018-07-14] MEDS: CefTRIAXone/D5W-Rocephin 1gm 50 ML IV SCH ×2 (07:36→20:08)
[2018-07-14] MEDS: methylPREDNISolone sod succ/PF 40mg inj. IV SCH ×2 (07:36→20:07)
[2018-07-14 11:00] VITALS: BP 122/77
[2018-07-14] MEDS: normal saline 1000ml 1,000 ML IV SCH (13:22)
[2018-07-14 15:00] VITALS: BP 148/76
--- NOTE | 2018-07-14 18:00 | NUR ---
Patient in room PCU 3028. I have received report from TORSTEN Bañuelos and had the opportunity to ask questions and assume patient care.
[2018-07-14 19:00] VITALS: BP 135/82
[2018-07-14 23:00] VITALS: BP 126/76
[2018-07-15 03:00] VITALS: BP 114/69
[2018-07-15 05:10] LABS: BASOPHILS % (AUTO) 0 % (0-1); EOSINOPHILS % (AUTO) 0.1 % (0-6); HEMATOCRIT 32.4 % (35.0-45.0); HEMOGLOBIN 11.1 g/dl (12.0-16.0); LYMPHOCYTES # (AUTO) 1.1 X10'3 (1.1-4.8); LYMPHOCYTES % (AUTO) 10.7 % (21-51); MEAN CORPUSCULAR HGB CONC 34.1 % (33.0-36.5); MEAN CORPUSCULAR VOLUME 85.1 FL (78-98); MEAN PLATELET VOLUME 8.6 FL (7.4-10.4); MONOCYTES # (AUTO) 0.4 X10'3 (0-0.9); MONOCYTES % (AUTO) 4.1 % (2-12); NEUTROPHILS # (AUTO) 8.6 X10'3 (1.8-7.7); NEUTROPHILS % (AUTO) 85.1 % (42-75); PLATELET COUNT 198 X10'3 (140-440); RED BLOOD COUNT 3.81 X10'6 (4.20-5.60); RED CELL DISTRIBUTION WIDTH 13.4 % (11.5-14.5); WHITE BLOOD COUNT 10.1 X10'3 (4.5-11.0)
[2018-07-15 05:31] LABS: ALANINE AMINOTRANSFERASE 14 U/L (12-78); ALBUMIN 2.6 G/DL (3.4-5.0); ALBUMIN/GLOBULIN RATIO 0.8 (1.1-1.5); ALKALINE PHOSPHATASE 61 IU/L (46-116); ANION GAP 8 (8-16); ASPARTATE AMINO TRANSFERASE 12 U/L (10-37); BILIRUBIN,TOTAL 0.2 MG/DL (0.1-1.0); BLOOD UREA NITROGEN 21 MG/DL (7-18); BUN/CREATININE RATIO 37.5 (6.6-38.0); CALCIUM 8.5 MG/DL (8.5-10.1); CHLORIDE 104 MMOL/L (99-107); CREATININE 0.56 MG/DL (0.40-0.90); GLUCOSE 135 MG/DL (70-104); POTASSIUM 4.1 MMOL/L (3.5-5.1); SODIUM 140 MMOL/L (135-145); TOTAL CARBON DIOXIDE 27.6 MMOL/L (24-32); TOTAL PROTEIN 5.8 G/DL (6.4-8.2); eGFR > 90 ML/MIN
[2018-07-15] MEDS: normal saline 1000ml 1,000 ML IV SCH (08:52)
[2018-07-15] MEDS: docusate sod 100mg capsule PO SCH ×2 (08:53→19:31)
[2018-07-15] MEDS: CefTRIAXone/D5W-Rocephin 1gm 50 ML IV SCH ×2 (08:53→19:31)
[2018-07-15] MEDS: lactobacillus rhamnosus 10,000 MMU CELLS/CAPSULE PO SCH ×2 (08:53→19:32)
[2018-07-15] MEDS: methylPREDNISolone sod succ/PF 40mg inj. IV SCH ×2 (08:53→19:31)
[2018-07-15] MEDS: heparin, porcine 5000 units/ml vial SQ SCH ×2 (08:54→19:31)
[2018-07-15] MEDS: azithromycin/NS 500mg/250ml 250 ML IV SCH (09:00)
[2018-07-15] MEDS: guaiFENesin/codeine phos 10ml UD oral syrup PO PRN ×2 (15:20→22:01)
[2018-07-15 18:00] VITALS: BP 122/80
--- NOTE | 2018-07-15 18:10 | NUR ---
Problems reprioritized. Patient report given, questions answered & plan of care reviewed with Susie SARMIENTO.
[2018-07-15 18:44] VITALS: BP 129/78
--- NOTE | 2018-07-15 19:16 | NUR ---
Received report from TORSTEN Richards. Patient is awake and alert on 3L NC, in no apparent distress. Call light and items of frequent use within reach. Will continue to monitor.
[2018-07-15] MEDS: ipratropium/albuterol 3ml nebule NEB PRN (20:34)
[2018-07-15] MEDS ORDERED: famotidine 20mg tablet PO SCH (21:00)
[2018-07-15 22:00] VITALS: BP 133/88
[2018-07-16 02:00] VITALS: BP 132/84
[2018-07-16 05:03] LABS: ALANINE AMINOTRANSFERASE 18 U/L (12-78); ALBUMIN 2.9 G/DL (3.4-5.0); ALBUMIN/GLOBULIN RATIO 0.8 (1.1-1.5); ALKALINE PHOSPHATASE 72 IU/L (46-116); ANION GAP 8 (8-16); ASPARTATE AMINO TRANSFERASE 12 U/L (10-37); BILIRUBIN,TOTAL 0.2 MG/DL (0.1-1.0); BLOOD UREA NITROGEN 18 MG/DL (7-18); BUN/CREATININE RATIO 24.3 (6.6-38.0); CALCIUM 8.7 MG/DL (8.5-10.1); CHLORIDE 103 MMOL/L (99-107); CREATININE 0.74 MG/DL (0.40-0.90); GLUCOSE 160 MG/DL (70-104); POTASSIUM 3.7 MMOL/L (3.5-5.1); SODIUM 140 MMOL/L (135-145); TOTAL CARBON DIOXIDE 28.7 MMOL/L (24-32); TOTAL PROTEIN 6.4 G/DL (6.4-8.2); eGFR 83 ML/MIN
[2018-07-16 05:05] LABS: BASOPHILS % (AUTO) 0.5 % (0-1); EOSINOPHILS # (AUTO) 0.1 X10'3 (0-0.9); EOSINOPHILS % (AUTO) 0.7 % (0-6); HEMATOCRIT 36.3 % (35.0-45.0); HEMOGLOBIN 12.3 g/dl (12.0-16.0); LYMPHOCYTES # (AUTO) 1.4 X10'3 (1.1-4.8); LYMPHOCYTES % (AUTO) 16.3 % (21-51); MEAN CORPUSCULAR HEMOGLOBIN 28.9 PG (27.0-31.0); MEAN CORPUSCULAR HGB CONC 33.9 % (33.0-36.5); MEAN CORPUSCULAR VOLUME 85.1 FL (78-98); MEAN PLATELET VOLUME 8.9 FL (7.4-10.4); MONOCYTES # (AUTO) 0.4 X10'3 (0-0.9); MONOCYTES % (AUTO) 4.7 % (2-12); NEUTROPHILS # (AUTO) 6.6 X10'3 (1.8-7.7); NEUTROPHILS % (AUTO) 77.8 % (42-75); PLATELET COUNT 255 X10'3 (140-440); RED BLOOD COUNT 4.26 X10'6 (4.20-5.60); RED CELL DISTRIBUTION WIDTH 13.4 % (11.5-14.5); WHITE BLOOD COUNT 8.5 X10'3 (4.5-11.0)
--- NOTE | 2018-07-16 06:27 | NUR ---
Problems reprioritized. Patient report given, questions answered & plan of care reviewed with TORSTEN Juárez.
[2018-07-16 08:00] VITALS: BP 118/78
[2018-07-16] MEDS: CefTRIAXone/D5W-Rocephin 1gm 50 ML IV SCH (08:00)
[2018-07-16] MEDS: docusate sod 100mg capsule PO SCH (08:00)
[2018-07-16] MEDS ORDERED: azithromycin 250mg tablet PO SCH (08:00)
[2018-07-16] MEDS: methylPREDNISolone sod succ/PF 40mg inj. IV SCH (08:04)
[2018-07-16] MEDS: lactobacillus rhamnosus 10,000 MMU CELLS/CAPSULE PO SCH (08:04)
[2018-07-16] MEDS: heparin, porcine 5000 units/ml vial SQ SCH (08:05)
[2018-07-16] MEDS ORDERED: IPRA3AMP9 NEB (11:47)
[2018-07-16] MEDS ORDERED: FAMO20TA8 PO (11:47)
[2018-07-16] MEDS ORDERED: AZI25OT PO (11:47)
[2018-07-16] MEDS ORDERED: PRED20TA PO (11:47)
[2018-07-16] MEDS ORDERED: AMOX-422 PO (11:49)
[2018-07-16] MEDS ORDERED: COMP1EAC88 INH (11:49)
--- NOTE | 2018-07-16 12:47 | NUR ---
patient discharged home per MD orders
== END 2018-07-16 12:35 | disposition home or self-care (01) | DRG 720 ==
LOC: ER 20:09 → ED HOLD 22:56 → PCU 3S 07-13 07:35 → CMPBEDREQ 07-14 19:27
PROVIDERS: ADMIT Family Medicine; ATTEND Internal Medicine
PROC: 5A09357 Assistance with Respiratory Ventilation, Less than 24 Consecutive Hours, Continuous Positive Airway Pressure (ICD-10-PCS; principal; 2018-07-12)
DX: A41.9 Sepsis, unspecified organism (principal); J96.01 Acute respiratory failure with hypoxia; J44.1 Chronic obstructive pulmonary disease with (acute) exacerbation; I50.32 Chronic diastolic (congestive) heart failure; J18.9 Pneumonia, unspecified organism; J44.0 Chronic obstructive pulmonary disease with (acute) lower respiratory infection; Z88.2 Allergy status to sulfonamides; Z79.899 Other long term (current) drug therapy
CPT/HCPCS: 36415; 36600; 71045; 80053; 82803; 83036; 83605; 83735; 83880; 84100; 84484; 85018; 85025; 85610; 87040; 87070; 93005; 94640; 94660; 94667; 94668; 94760; 96374; 96375; 99291; G0378; J0456; J0696; J1644; J2060; J2920; J2930; J7030

== ENCOUNTER 2018-08-29 10:07 | Emergency (ER) | payer MEDICAID ==
[~2018-08-29] VITALS: Ht 175.3 cm; Wt 79.5 kg
[~2018-08-29 10:07] MED LIST changes: -ALBU8.5H8 INH; +AZI25OT PO; +COMP1EAC88 INH; +FAMO20TA8 PO; +IPRA3AMP9 NEB; -PANT40TA4 PO
[2018-08-29] MEDS ORDERED: albuterol 2.5 MG/3 ML nebule NEB ONE (11:00)
[2018-08-29] MEDS ORDERED: normal saline 1000ML IV soln IVB ONE (11:00)
[2018-08-29] MEDS ORDERED: methylPREDNISolone sod succ 125mg/2ml vial IV ONE (11:00)
[2018-08-29] MEDS ORDERED: ipratropium/albuterol 3ml nebule NEB ONE (14:50)
[2018-08-29] MEDS ORDERED: ALBU8HFA PO (14:52)
[2018-08-29] MEDS ORDERED: PRED20TA PO (14:52)
[2018-08-29 15:21] VITALS: BP 136/93
== END 2018-08-29 16:11 | disposition home or self-care (01) ==
LOC: ER 10:07
DX: J44.1 Chronic obstructive pulmonary disease with (acute) exacerbation (principal); Z88.2 Allergy status to sulfonamides; Z79.899 Other long term (current) drug therapy
CPT/HCPCS: 71046; 93005; 94640; 94760; 96374; 99284; J2930